=== PATIENT | female | born 1985 | race Caucasian/White ===

== ENCOUNTER 2019-08-10 15:53 | Outpatient (CLI) | payer MEDICAID, SELFPAY ==
[2019-08-12 14:36] LABS: Ethyl Glucuronide Screen, U Negative
[2019-08-13 12:14] LABS: Fentanyl Interpretation Negative.; Fentanyl by LC-MS/MS Negative; Norfentanyl by LC-MS/MS Negative
[2019-08-14 10:05] LABS: Amphetamine Negative ng/mL (Cutoff: 25); Amphetamines Interpretation Negative.; MDA (Ecstasy Metabolite) Negative ng/mL (Cutoff: 25); MDMA (Ecstasy) Negative ng/mL (Cutoff: 25); Methamphetamine Negative ng/mL (Cutoff: 25); Phentermine Negative ng/mL (Cutoff: 25); Pseudoephedrine/Ephedrine Negative ng/mL (Cutoff: 25)
[2019-08-14 10:11] LABS: Benzoylecgonine Negative ng/mL (Cutoff: 50); Cocaine Negative ng/mL (Cutoff: 50); Cocaine Interpretation Negative.
[2019-08-15 14:38] LABS: Buprenorphine 334.7 ng/mL
[2019-08-16 10:23] LABS: Codeine Negative ng/mL (Cutoff: 25); Dihydrocodeine Negative ng/mL (Cutoff: 25); Hydrocodone Negative ng/mL (Cutoff: 25); Hydromorphone Negative ng/mL (Cutoff: 25); Morphine Negative ng/mL (Cutoff: 25); Naloxone 944 ng/mL (Cutoff: 25); Norhydrocodone Negative ng/mL (Cutoff: 25); Noroxycodone Negative ng/mL (Cutoff: 25); Noroxymorphone 105 ng/mL (Cutoff: 25); Opiates Interpretation Positive.
== END 2019-08-10 16:13 ==
PROVIDERS: PCP Nurse Practitioner Family; Visit Provider Family Medicine
DX: F11.20 Opioid dependence, uncomplicated (principal)
CPT/HCPCS: 80307; 80324; 80361; 80353; 80354

== ENCOUNTER 2019-08-15 12:24 | Outpatient (CLI) | payer MEDICAID, SELFPAY ==
[2019-08-16 18:19] LABS: Ethyl Glucuronide Screen, U Negative
[2019-08-17 11:36] LABS: Benzoylecgonine Negative ng/mL (Cutoff: 50); Cocaine Negative ng/mL (Cutoff: 50); Cocaine Interpretation Negative.
[2019-08-17 12:53] LABS: Buprenorphine 138.3 ng/mL; Norbuprenorphine 1744.9 ng/mL
[2019-08-18 12:54] LABS: Codeine Negative ng/mL (Cutoff: 25); Dihydrocodeine Negative ng/mL (Cutoff: 25); Hydrocodone Negative ng/mL (Cutoff: 25); Hydromorphone Negative ng/mL (Cutoff: 25); Morphine Negative ng/mL (Cutoff: 25); Naloxone 141 ng/mL (Cutoff: 25); Norhydrocodone Negative ng/mL (Cutoff: 25); Noroxycodone Negative ng/mL (Cutoff: 25); Noroxymorphone 36 ng/mL (Cutoff: 25); Opiates Interpretation Positive.
[2019-08-18 13:27] LABS: Amphetamine Negative ng/mL (Cutoff: 25); Amphetamines Interpretation Negative.; MDA (Ecstasy Metabolite) Negative ng/mL (Cutoff: 25); MDMA (Ecstasy) Negative ng/mL (Cutoff: 25); Methamphetamine Negative ng/mL (Cutoff: 25); Phentermine Negative ng/mL (Cutoff: 25); Pseudoephedrine/Ephedrine Negative ng/mL (Cutoff: 25)
[2019-09-04 11:58] LABS: Misc Referral (MAYO) See Comments
== END 2019-08-15 12:44 ==
PROVIDERS: PCP Nurse Practitioner Family; Visit Provider Family Medicine
DX: F11.20 Opioid dependence, uncomplicated (principal)
CPT/HCPCS: 80307; 80324; 80361; 80353

== ENCOUNTER 2019-08-22 11:32 | Outpatient (CLI) | payer MEDICAID, SELFPAY ==
[2019-08-24 13:47] LABS: Fentanyl Interpretation Negative.; Fentanyl by LC-MS/MS Negative; Norfentanyl by LC-MS/MS Negative
[2019-08-25 20:03] LABS: 2-OH-Ethyl-Flurazepam Negative ng/mL (Cutoff: 100); 7-NH-Clonazepam Negative ng/mL (Cutoff: 100); 7-NH-Flunitrazepam Negative ng/mL (Cutoff: 50); Alpha OH-Alprazolam Negative ng/mL (Cutoff: 100); Alpha-OH-Triazolam Negative ng/mL (Cutoff: 100); Benzodiazepines Interpretation Negative.; Lorazepam Negative ng/mL (Cutoff: 100); Temazepam Negative ng/mL (Cutoff: 100)
[2019-08-25 20:14] LABS: Buprenorphine 252.5 ng/mL
[2019-08-26 10:43] LABS: Codeine Negative ng/mL (Cutoff: 25); Dihydrocodeine Negative ng/mL (Cutoff: 25); Hydrocodone Negative ng/mL (Cutoff: 25); Hydromorphone Negative ng/mL (Cutoff: 25); Morphine Negative ng/mL (Cutoff: 25); Naloxone 182 ng/mL (Cutoff: 25); Norhydrocodone Negative ng/mL (Cutoff: 25); Noroxycodone Negative ng/mL (Cutoff: 25); Noroxymorphone 56 ng/mL (Cutoff: 25); Opiates Interpretation Positive.
[2019-08-27 13:17] LABS: Amphetamine Negative ng/mL (Cutoff: 25); Amphetamines Interpretation Negative.; MDA (Ecstasy Metabolite) Negative ng/mL (Cutoff: 25); MDMA (Ecstasy) Negative ng/mL (Cutoff: 25); Methamphetamine Negative ng/mL (Cutoff: 25); Phentermine Negative ng/mL (Cutoff: 25); Pseudoephedrine/Ephedrine Negative ng/mL (Cutoff: 25)
== END 2019-08-22 11:52 ==
PROVIDERS: PCP Nurse Practitioner Family; Visit Provider Family Medicine
DX: F11.20 Opioid dependence, uncomplicated (principal)
CPT/HCPCS: 80307; 80324; 80361; 80346; 80354